=== PATIENT | female | born 2005 | race Caucasian/White ===

== ENCOUNTER 2023-02-15 16:15 | Emergency (ER) | payer BC, OTHER ==
[~2023-02-15] VITALS: Ht 165.1 cm; Wt 65.8 kg
[2023-02-15 18:57] LABS: *BILIRUBIN,URIN NEGATIVE (NEGATIVE); *BLOOD, URINE NEGATIVE (NEGATIVE); *CLARITY,URINE CLEAR (CLEAR); *COLOR,URINE YELLOW (YELLOW); *KETONES,URINE 1+ (NEGATIVE); *PROTEIN,URINE NEGATIVE (NEGATIVE); *UROBILINOGEN,URINE 0.2 E.U./dl (NORMAL); LEUKOCYTE ESTERASE ,URINE NEGATIVE (NEGATIVE); NITRITE, URINE NEGATIVE (NEGATIVE); PH,URINE 5.5 (5.0-8.0); UGLUCOSE NEGATIVE (NEGATIVE)
[2023-02-15 19:05] LABS: *URINE HCG, QUAL NEGATIVE (NEGATIVE)
[2023-02-15 20:29] VITALS: BP 125/82; TEMP 97.7; O2SAT 98
[2023-02-15 23:33] LABS: BACTERIA,URINE NONE SEEN /HPF (NONE SEEN); RBC,URINE 0-3 /HPF (0-3); SQUAMOUS EPITHELIAL CELL,UR FEW /HPF (NONE SEEN); WBC,URINE 0-3 /HPF (0-3)
== END 2023-02-15 20:30 | disposition home or self-care (01) ==
LOC: ER 16:22
DX: M54.12 Radiculopathy, cervical region (principal); R20.2 Paresthesia of skin
CPT/HCPCS: 72125; 84703; A4663